=== PATIENT | female | born 1975 | race Caucasian/White ===

== ENCOUNTER 2021-03-19 16:44 | Emergency (ER) | payer OTHER ==
[~2021-03-19] VITALS: Ht 167.6 cm; Wt 52.3 kg
[2021-03-19 16:48] VITALS: BP 113/71
== END 2021-03-19 18:06 | disposition home or self-care (01) ==
LOC: ER 16:45
DX: M79.605 Pain in left leg (principal); F17.200 Nicotine dependence, unspecified, uncomplicated; Z98.890 Other specified postprocedural states
CPT/HCPCS: 99281